=== PATIENT | female | born 1970 | race Caucasian/White ===

== ENCOUNTER → 2016-10-12 | Outpatient (CLI) | payer BC ==
[~2016-10-12] MED LIST: CLR10 PO; DEXL60CA4 PO; FRN PO; MULT-506 PO; OXYC-57 PO; PSEU1TAB2 PO; PYRI50TA77 PO; SIME80TA PO; ZNTT/150 PO
[2016-10-12 15:42] LABS: BASO % 0.2 %; BASO ABS # 0.02 K/uL (0-0.2); COMPLETE YES; EOS % 2.6 %; HEMATOCRIT 40.6 % (37-47); IG% 0.1 %; LYMPH % 14.6 %; LYMPH ABS # 1.17 K/uL (1.2-3.4); MEAN CELL VOLUME 95.8 fL (80-100); MEAN CORPUSCULAR HEMOGLOBIN 31.8 pg (25-34); MEAN CORPUSCULAR HGB CONC 33.3 g/dl (32-36); MEAN PLATELET VOLUME 10.7 fL (7.4-10.4); MONO % 11.3 %; NEUT % 71.2 %; PLATELET COUNT 203 K/uL (130-400); RED BLOOD COUNT 4.24 M/uL (4.2-5.4); WHITE BLOOD COUNT 8.03 K/uL (4.8-10.8)
[2016-10-12 16:08] LABS: ALT/SGPT 37 U/L (12-78); AST/SGOT 22 U/L (15-37); BLOOD UREA NITROGEN 7 mg/dl (7-18); BUN/CREATININE RATIO 9.5 (10-20); CALCIUM 8.9 mg/dl (8.5-10.1); CARBON DIOXIDE 32 mmol/L (21-32); CHLORIDE 104 mmol/L (98-107); CREATININE 0.71 mg/dl (0.60-1.20); GLUCOSE 86 mg/dl (70-99); POTASSIUM 3.7 mmol/L (3.5-5.1); SODIUM 142 mmol/L (136-145)
[2016-10-12 16:17] LABS: ALB/GLOB RATIO 0.9 (0.9-2); ALKALINE PHOSPHATASE 78 U/L (45-117); THYROID STIMULATING HORMONE 0.302 uIu/ml (0.300-4.500)
[2016-10-12 21:28] LABS: LYME DISEASE AB IGG NEG (NEG); LYME DISEASE AB IGM NEG (NEG)
== END | disposition home or self-care (01) ==
LOC: C.LAB1850 14:51
PROVIDERS: ATTEND Family Medicine
DX: R53.83 Other fatigue (principal)

== ENCOUNTER → 2016-10-24 | Outpatient (CLI) | payer BC ==
--- NOTE | 2016-10-27 11:12 | POLYSOMNOGRAPH REPORT ---
CLINICAL DATA: 46-year-old with BMI female with BMI of 26.[address] Armstrong with history of fatigue and daytime hypersomnolence for a sleep study. On the evening of 10/24/2016, a home sleep apnea test was performed using a Clink type 3 monitor. RECORDING RESULTS: Total recording time was 10 hours. The patient's estimated sleep time and patient monitoring time was 6.9 hours. RESPIRATORY DATA: There was no evidence of sleep apnea. No respiratory events were recorded. The JORGE was 0. OXIMETRY DATA: No hypoxemia was seen. Oxygen donna was 91%. Mean saturation was 94%. EKG: Heart rates ranged from 66-86 beats per minute. SNORING DATA: Snoring was recorded intermittently throughout the night. IMPRESSION: No evidence of clinically significant sleep apnea/hypopnea or nocturnal hypoxemia with an JORGE of 0 and no evidence of oxygen desaturation. The patient should continue to practice good sleep hygiene. GI
== END | disposition home or self-care (01) ==
LOC: C.NEUR 14:30
PROVIDERS: ATTEND Family Medicine
DX: G47.19 Other hypersomnia (principal); R06.83 Snoring

== ENCOUNTER → 2016-11-02 | Outpatient (CLI) | payer BC ==
--- NOTE | 2016-11-02 14:52 | MAMMOGRAPHY REPORT ---
UNILATERAL LEFT DIGITAL DIAGNOSTIC MAMMOGRAM TOMOSYNTHESIS AND TARGETED LEFT ULTRASOUND: 11/02/2016 CLINICAL HISTORY: Callback from screening mammogram for possible left breast mass. TECHNIQUE: Breast tomosynthesis in addition to standard 2D mammography was performed. Spot dayana marla left CC and MLO 2-D and tomosynthesis images were obtained. COMPARISON: Comparison is made to exams dated: 09/27/2016 mammogram - [facility], 09/24/2015 mammogram, 09/22/2014 mammogram, 09/11/2013 mammogram, 06/24/2012 mammogram, and 06/09/2011 mammogram. BREAST COMPOSITION: There are scattered areas of fibroglandular density in the left breast. FINDINGS: The previously described possible mass seen within the left breast, best seen on the MLO view posterior to the nipple, does not clearly persist on the additional views, without a suspicious mass, architectural distortion, or other suspicious finding noted in this region on the additional compression views. Targeted ultrasound was performed of the left lower outer quadrant and 3:00, 9:00, and subareolar br east. No suspicious masses or other suspicious sonographic abnormalities are evident. In the left breast at 9:00 periareolar region, there is an oval anechoic 8 x 2 x 4 mm mass, which either represe nts a benign cyst versus focal duct ectasia and is benign. This is felt to be incidentally noted an d likely does not correspond with the initial screening mammographic finding. IMPRESSION: ACR BI-RADS CATEGORY 2: BENIGN, TARGETED ULTRASOUND ACR BI-RADS CATEGORY 2: BENIGN The previously described possible mass in the left breast does not persist on the additional views, without a corresponding suspicious sonographic abnormality evident. Findings are benign and compati ble with normal fibroglandular tissue. There is no mammographic or targeted sonographic evidence of malignancy. A 1 year screening mammogram is recommended. The patient has been verbally notified of the results. Approximately 10% of breast cancers are not detected with mammography. A negative mammographic repor t should not delay biopsy if a clinically suggestive mass is present. Tiara Torres M.D. /:11/02/2016 09:11:48 Lands Resource Manager: Reva Victor, [facility] letter sent: Normal 1/2 BI-RADS Code: ACR BI-RADS Category 2: Benign Ultrasound BI-RADS: ACR BI-RADS Category 2: Benign
== END | disposition home or self-care (01) ==
LOC: C.MAMM 08:13
PROVIDERS: ATTEND Obstetrics & Gynecology
DX: N63 Unspecified lump in breast (principal)

== ENCOUNTER → 2017-03-09 | Outpatient (CLI) | payer BC ==
[2017-03-09 13:16] LABS: CHOLESTEROL/HDL RATIO 2.1
== END | disposition home or self-care (01) ==
LOC: C.LABPBG 07:30
PROVIDERS: ATTEND Nurse Practitioner Adult Health
DX: G43.909 Migraine, unspecified, not intractable, without status migrainosus (principal)

== ENCOUNTER → 2017-07-18 | Outpatient (CLI) | payer BC ==
--- NOTE | 2017-07-18 15:05 | DIAGNOSTIC IMAGING REPORT ---
SINGLE VIEW PELVIS; 2 VIEWS RIGHT HIP CLINICAL HISTORY: Right hip pain. FINDINGS: AP view of the pelvis with AP and frog-leg views of the right hip are obtained. No prior studies are available for comparison at the time of dictation. The skeletal structures are well mineralized. No fracture is seen in the hips or bony pelvis. The joint spaces of the hips are preserved. The sacroiliac joints are within normal limits. Small phleboliths are seen in the pelvis. There is a nonobstructed abdominal bowel gas pattern. IMPRESSION: No acute bony abnormality is seen in the hips or pelvis. Electronically signed by: Jean Flor M.D. 07/18/2017 3:03 PM Dictated Date/Time: 07/18/2017 2:57 PM
== END | disposition home or self-care (01) ==
LOC: C.RAD1850 14:47
PROVIDERS: ATTEND Physician Assistant
DX: M25.551 Pain in right hip (principal)

== ENCOUNTER → 2017-09-24 | Outpatient (CLI) | payer OTHER | END | disposition home or self-care (01) | LOC: C.PAPS 09:47 | PROVIDERS: ATTEND Obstetrics & Gynecology | DX: Z12.4 Encounter for screening for malignant neoplasm of cervix (principal) ==

== ENCOUNTER → 2017-10-02 | Outpatient (CLI) | payer OTHER ==
--- NOTE | 2017-10-02 15:29 | MAMMOGRAPHY REPORT ---
BILATERAL DIGITAL SCREENING MAMMOGRAM TOMOSYNTHESIS WITH CAD: 10/02/2017 CLINICAL HISTORY: Routine screening. Patient has no complaints. TECHNIQUE: Breast tomosynthesis in addition to standard 2D mammography was performed. Current study was also evaluated with a Computer Aided Detection (CAD) system. COMPARISON: Comparison is made to exams dated: 11/02/2016 ultrasound, 11/02/2016 mammogram, 09/27/2016 mammogram - [facility], 09/24/2015 mammogram, 09/22/2014 mammogram, and 09/11/2013 mammogram. BREAST COMPOSITION: There are scattered areas of fibroglandular density in both breasts. FINDINGS: The parenchymal pattern is unchanged. No developing mass, architectural distortion or clus ter of suspicious microcalcifications is seen in either breast. IMPRESSION: ACR BI-RADS CATEGORY 2: BENIGN There is no mammographic evidence of malignancy. A 1 year screening mammogram is recommended. The pa tient will receive written notification of the results. Approximately 10% of breast cancers are not detected with mammography. A negative mammographic report should not delay biopsy if a clinically suggestive mass is present. Mindy Saunders M.D. ay/:10/02/2017 08:23:48 Supervisor Refining: Lise CARUSO(Dilcia)(M), [facility] letter sent: Normal 1/2 BI-RADS Code: ACR BI-RADS Category 2: Benign
== END | disposition home or self-care (01) ==
LOC: C.MAMM 07:10
PROVIDERS: ATTEND Obstetrics & Gynecology
DX: Z12.31 Encounter for screening mammogram for malignant neoplasm of breast (principal)

== ENCOUNTER → 2017-11-19 | Outpatient (CLI) | payer OTHER ==
[~2017-11-19] MED LIST changes: +RANI150T85 PO; -ZNTT/150 PO
== END | disposition home or self-care (01) ==
LOC: C.LABSPEC 17:15
PROVIDERS: ATTEND Physician Assistant
DX: J35.1 Hypertrophy of tonsils (principal)

== ENCOUNTER → 2018-02-07 | Outpatient (CLI) | payer OTHER | END | disposition home or self-care (01) | LOC: C.LABSPEC 16:03 | PROVIDERS: ATTEND Family Medicine | DX: J02.9 Acute pharyngitis, unspecified (principal) ==